=== PATIENT | male | born 1990 | race Caucasian/White ===

== ENCOUNTER 2023-05-02 22:29 | Emergency (ER) | payer OTHER ==
[~2023-05-02] VITALS: Ht 188 cm; Wt 93.0 kg
[~2023-05-02 22:29] MED LIST: ACET325 PO; AMOX500 PO; ANTOXYBENA BOTHEARS; Advil200 M1 PO; Amoxicillin500 MG PO; Amphetamine Sal20 MG PO; Augmentin 875-1 EACH PO; CEPH500 PO; CHLO500; CLIN300 PO; CYCL10 PO; Catapres0.1 MG PO; Cleocin HCl300 MG PO; DOCU100 PO; ERYT.5TO BOTHEYES; ERYT.5TO LEFTEYE; FLUO10 PO; HYDACE10B PO; HYDACE5 PO; HYDPAM50 PO; HYDR-86; HYDR1TAB94 PO; IBUP800 PO; LORA2 PO; Naprosyn500 MG PO; Norco 10-325 T1 EACH PO; Norco 5-325 Ta1 EACH PO; Norco 7.5-3251 EACH PO; OSEL75CA PO; OXYACE5T PO; PROC5 PO; PROM25 PO; Percocet 10-321 EACH PO; SUBOXONE 12 MG1 EACH SL; SUBUTEX PO; Strattera80 MG PO; Ultram50 MG PO; VENL37.5 PO; VENL37.5ER PO; VENL75ER PO; Valium5 MG PO; Vistaril25 MG PO
[2023-05-02 22:39] VITALS: BP 130/98
== END 2023-05-02 22:50 | disposition home or self-care (01) ==
LOC: ER 22:29
DX: R03.0 Elevated blood-pressure reading, without diagnosis of hypertension (principal); F17.210 Nicotine dependence, cigarettes, uncomplicated; Z88.8 Allergy status to other drugs, medicaments and biological substances; Z88.1 Allergy status to other antibiotic agents
CPT/HCPCS: 99281

== ENCOUNTER 2023-10-08 21:08 | Emergency (ER) | payer OTHER ==
[~2023-10-08] VITALS: Ht 188 cm; Wt 108.9 kg
[2023-10-08 21:37] LABS: BASOPHILS ABSOLUTE AUTO 0.05 K/mm3 (0.00-0.23); BASOPHILS PERCENT AUTO 1 % (0-2); EOSINOPHILS ABSOLUTE AUTO 0.12 K/mm3 (0.00-0.68); EOSINOPHILS PERCENT AUTO 1 % (0-6); Hematocrit 41.4 % (37.0-53.0); Hemoglobin 14.3 g/dL (13.5-17.5); IMMATURE GRAN ABSOLUTE AUTO 0.04 K/mm3 (0.00-0.10); IMMATURE GRAN PERCENT AUTO 0 % (0-1); LYMPHOCYTES ABSOLUTE AUTO 2.74 K/mm3 (0.84-5.20); LYMPHOCYTES PERCENT AUTO 29 % (21-46); MONOCYTES PERCENT AUTO 5 % (4-13); Mean Corpuscular HGB 30.6 pg (26.0-34.0); Mean Corpuscular HGB Conc 34.5 g/dL (31.5-36.5); Mean Corpuscular Volume 89 fL (80-100); Mean Platelet Volume 11.4 fL (9.1-12.4); NEUTROPHILS ABSOLUTE AUTO 5.91 K/mm3 (1.96-9.15); NEUTROPHILS PERCENT AUTO 63 % (41-73); Platelet Count 243 K/mm3 (150-400); RDW Coefficient Variation 13.2 % (11.7-14.2); Red Blood Cell Count 4.67 M/mm3 (4.30-5.90); White Blood Cell Count 9.36 K/mm3 (4.00-11.30)
[2023-10-08 21:51] LABS: International Normalized Ratio 0.93; Prothrombin Time Results 9.8 Sec (9.7-11.5)
[2023-10-08 21:57] LABS: Alanine Aminotransfer (ALT/SGP 33 U/L (12-78); Albumin, Blood 3.9 g/dL (3.4-5.0); Albumin/Globulin Ratio 1.3 (0.8-1.8); Alk Phos 114 U/L (50-136); Anion Gap 0 mmol/L (6-16); Aspartate Aminotrans (AST/SGOT 34 U/L (12-37); Bilirubin, Total 0.4 mg/dL (0.1-1.0); Blood Urea Nitrogen 13 mg/dL (8-24); Bun/Creatinine Ratio 14.9 (12.0-20.0); CO2, Blood 31 mmol/L (21-32); Calcium, Blood 8.6 mg/dL (8.5-10.1); Chloride, Blood 109 mmol/L (98-108); Creatinine, Blood 0.87 mg/dL (0.60-1.20); Globulin, Blood 3.1 g/dL (2.2-4.0); Glomerular Filtration Rate 116 (60-); Glucose, Blood 158 mg/dL (70-99); Potassium, Blood 3.7 mmol/L (3.5-5.5); Sodium, Blood 140 mmol/L (136-145)
[2023-10-08 22:49] LABS: Ethanol (Alcohol), Blood, Med <3 mg/dL
[2023-10-08 23:00] VITALS: BP 124/103
== END 2023-10-08 23:52 | disposition home or self-care (01) ==
LOC: ER 21:08
PROVIDERS: Student in an Organized Health Care Education/Training Program
DX: S06.0XAA Concussion with loss of consciousness status unknown, initial encounter (principal); M25.522 Pain in left elbow; M25.561 Pain in right knee; V43.52XA Car driver injured in collision with other type car in traffic accident, initial encounter; Z88.8 Allergy status to other drugs, medicaments and biological substances; Z88.1 Allergy status to other antibiotic agents; F43.10 Post-traumatic stress disorder, unspecified; F17.210 Nicotine dependence, cigarettes, uncomplicated
CPT/HCPCS: 70450; 71260; 72125; 73070; 73560-RT; 74177; 80053; 85025; 85610; 90471; 90714; 96374-59; 99285-25; J3010; Q9967

== ENCOUNTER 2025-05-10 16:32 | Emergency (ER) | payer OTHER ==
[~2025-05-10] VITALS: Ht 188 cm; Wt 108.9 kg
[~2025-05-10 16:32] MED LIST changes: +ONDA4ODT MM
[2025-05-10 16:53] VITALS: BP 162/93
[2025-05-10] MEDS ORDERED: Dexamethasone Sod Phos 10 MG/ML 1ML VIAL IM ONE (17:35)
[2025-05-10] MEDS ORDERED: Ketorolac Tromethamine 30mg Vial IM ONE (17:35)
[2025-05-10] MEDS ORDERED: Lidocaine 4% 1 Patch TOP ONE (17:35)
[2025-05-10] MEDS ORDERED: FAMO20 PO (17:45)
[2025-05-10] MEDS ORDERED: IBUP600 PO (17:45)
[2025-05-10] MEDS ORDERED: Robaxin750 MG PO (17:45)
== END 2025-05-10 18:18 | disposition home or self-care (01) ==
LOC: ER 16:32
DX: M54.50 Low back pain, unspecified (principal); F17.210 Nicotine dependence, cigarettes, uncomplicated; Z88.8 Allergy status to other drugs, medicaments and biological substances
CPT/HCPCS: 96372; 99283-25; A9270; J1100; J1885

== ENCOUNTER 2025-07-16 00:18 | Emergency (ER) | payer OTHER ==
[~2025-07-16] VITALS: Ht 188 cm; Wt 104.3 kg
[~2025-07-16 00:18] MED LIST changes: +FAMO20 PO; +IBUP600 PO; +Robaxin750 MG PO
[2025-07-16] MEDS ORDERED: Ketorolac Tromethamine 15mg Vial IV ONE (01:25)
[2025-07-16 02:11] LABS: BASOPHILS ABSOLUTE AUTO 0.04 K/mm3 (0.00-0.23); BASOPHILS PERCENT AUTO 1 % (0-2); EOSINOPHILS ABSOLUTE AUTO 0.02 K/mm3 (0.00-0.68); EOSINOPHILS PERCENT AUTO 0 % (0-6); Hematocrit 40.8 % (37.0-53.0); Hemoglobin 14.0 g/dL (13.5-17.5); IMMATURE GRAN ABSOLUTE AUTO 0.01 K/mm3 (0.00-0.10); IMMATURE GRAN PERCENT AUTO 0 % (0-1); LYMPHOCYTES ABSOLUTE AUTO 1.30 K/mm3 (0.84-5.20); LYMPHOCYTES PERCENT AUTO 16 % (21-46); MONOCYTES ABSOLUTE AUTO 0.73 K/mm3 (0.16-1.47); MONOCYTES PERCENT AUTO 9 % (4-13); Mean Corpuscular HGB Conc 34.3 g/dL (31.5-36.5); Mean Corpuscular Volume 88 fL (80-100); NEUTROPHILS ABSOLUTE AUTO 5.87 K/mm3 (1.96-9.15); NEUTROPHILS PERCENT AUTO 74 % (41-73); NRBC ABSOLUTE 0.00 K/mm3 (0.00-0.02); NRBC Auto 0.0 /100 WBC (0.0-0.2); Platelet Count 180 K/mm3 (150-400); RDW Coefficient Variation 13.2 % (11.7-14.2); RDW Standard Deviation 42.5 fL (35.1-46.3)
[2025-07-16 02:30] VITALS: BP 124/80
[2025-07-16 02:31] LABS: Alanine Aminotransfer (ALT/SGP 22.0 U/L (12-78); Albumin, Blood 3.9 g/dL (3.4-5.0); Albumin/Globulin Ratio 1.5 (0.8-1.8); Anion Gap 11.0 mmol/L (3-11); Aspartate Aminotrans (AST/SGOT 12.0 U/L (12-37); Bilirubin, Total 0.3 mg/dL (0.1-1.0); Blood Urea Nitrogen 8.0 mg/dL (8-24); CO2, Blood 26.0 mmol/L (21-32); Calcium, Blood 8.3 mg/dL (8.5-10.1); Chloride, Blood 105.0 mmol/L (98-108); Creatinine, Blood 0.94 mg/dL (0.60-1.20); Globulin, Blood 2.6 g/dL (2.2-4.0); Glucose, Blood 84.0 mg/dL (70-99); Potassium, Blood 3.7 mmol/L (3.5-5.5); Sodium, Blood 138.0 mmol/L (136-145); Total Protein, Blood 6.5 g/dL (6.4-8.2)
== END 2025-07-16 02:56 | disposition home or self-care (01) ==
LOC: ER 00:18
PROVIDERS: Student in an Organized Health Care Education/Training Program
DX: R51.9 Headache, unspecified (principal); R50.9 Fever, unspecified; I10 Essential (primary) hypertension; R00.0 Tachycardia, unspecified; F17.210 Nicotine dependence, cigarettes, uncomplicated; Z88.8 Allergy status to other drugs, medicaments and biological substances; Z88.1 Allergy status to other antibiotic agents
CPT/HCPCS: 80053; 85025; 96374; 99284-25; A9270; J1885; J7120

== ENCOUNTER 2025-08-30 23:15 | Emergency (ER) | payer OTHER ==
[~2025-08-30] VITALS: Ht 188 cm; Wt 104.3 kg
[2025-08-31 01:40] VITALS: BP 145/79
[2025-08-31] MEDS ORDERED: Voltaren100 GM TOP ×2 (01:42→17:18)
[2025-08-31] MEDS ORDERED: CYCL10 PO ×2 (01:42→17:18)
== END 2025-08-31 02:06 | disposition home or self-care (01) ==
LOC: ER 23:15
DX: S39.012A Strain of muscle, fascia and tendon of lower back, initial encounter (principal); F17.210 Nicotine dependence, cigarettes, uncomplicated; Z87.39 Personal history of other diseases of the musculoskeletal system and connective tissue; Z88.8 Allergy status to other drugs, medicaments and biological substances; Z88.1 Allergy status to other antibiotic agents; X58.XXXA Exposure to other specified factors, initial encounter
CPT/HCPCS: 99283; A9270